=== PATIENT | male | born 1960 | race Caucasian/White ===

== ENCOUNTER 2022-11-19 15:08 | Observation (INO) | payer BC, SELFPAY ==
--- NOTE | ~2022-11-19 | XR_ITS ---
EXAMINATION: XR hand LT min 3V INDICATION: Right hand pain TECHNIQUE: Three views of the right hand are obtained. COMPARISON: None available FINDINGS: There is soft tissue swelling adjacent to the first metacarpal. No fracture is identified. There is no radiopaque foreign body. 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 Mild osteoarthritis is noted in multiple interphalangeal joints. IMPRESSION: 1. Soft tissue swelling without acute osseous abnormality. Reviewed, dictated and finalized at location F.
[2022-11-19 15:12] VITALS: BP 143/81; PULSE 66; RESP 16; TEMP 36.6; O2SAT 99
[2022-11-19 15:40] LABS: Basophils Absolute Auto 0.1 K/mm3 (0.0-0.1); Basophils Percent Auto 0.8 % (0.2-1.2); Eosinophils Absolute Auto 0.2 K/mm3 (0-0.3); Eosinophils Percent Auto 2.2 % (0-4.4); Hematocrit 47.9 % (42.0-52.0); Hemoglobin 15.3 g/dL (14.0-18.0); Immature Granulocyte Absolute 0.08 K/mm3 (0.00-0.031); Immature Granulocyte Percent A 0.9 % (0-0.5); Lymphocytes Absolute Auto 1.66 K/mm3 (0.9-3.2); Lymphocytes Percent Auto 18.7 % (18.3-44.2); Mean Corpuscular HGB Conc 31.9 g/dl (32-36); Mean Corpuscular Hemoglobin 29.8 pg (26-34); Mean Corpuscular Volume 93.4 fl (80-100); Monocytes Absolute Auto 0.8 K/mm3 (0.1-0.6); Monocytes Percent Auto 9.4 % (2.6-8.5); Neutrophils Absolute Auto 6.1 K/mm3 (1.3-6.7); Platelet Count Result 170 k/mm3 (150-375); Red Blood Count 5.13 M/mm3 (4.6-6.20); Red Cell Distribution Width 11.9 % (11.5-14.5); White Blood Count 8.9 K/mm3 (4.5-10.0)
[2022-11-19 15:52] LABS: Alanine Aminotransferase 42 U/L (6-50); Albumin Level 4.5 g/dL (3.5-5.1); Alkaline Phosphatase 59 U/L (38-126); Anion Gap 7 mmol/L (8-16); Aspartate Amino Transferase 33 U/L (17-59); Bilirubin,Total 0.8 mg/dL (0.2-1.3); Blood Urea Nitrogen 19 mg/dL (9-20); Calcium 9.3 mg/dL (8.4-10.2); Carbon Dioxide 30 mmol/L (22-30); Chloride 100 mmol/L (98-107); Estimated CRCL calculation 68 ml/min; Estimated Glomerular Filt Rate 51; Glucose 110 mg/dL (65-110); Potassium 4.7 mmol/L (3.4-5.0); Sodium 137 mmol/L (137-145)
[2022-11-19 15:55] LABS: CRP 3.4 mg/dL (<1.0)
[2022-11-19 16:03] LABS: Erythrocyte Sedimentation Rate 12 mm/hr (0-20)
[2022-11-19] MEDS: LIDO 1%/EPINEPHRINE 1:100,000 10 ML VIAL (16:27)
--- NOTE | 2022-11-19 16:31 | ED.GENADULT ---
HPI - General Adult General Chief complaint: Extremity Injury, Upper Stated complaint: left hand infection Time Seen by Provider: 11/19/22 15:46 Source: RN notes reviewed and other (Received a call prior to patient's arrival from his PCP) History of Present Illness HPI narrative: Patient presents emergency department from PCPs office for cat bite. Patient states he sustained a cat bite by his cat on November 14. States his cat is up-to-date on all of his shots and there was a puncture wound over the aspect of the left hand at the base of the thumb. He states that he got to see Dr. Cummings and was started on Augmentin for which she has been taking for 3 days. States he gone today to follow-up with Dr. Cummings as he is continuing to have redness and swelling and he was directed to come the ER for further evaluation. He denies any pain with movement of his thumb or his wrist he denies any fevers or chills numbness or tingling of the extremities or any other symptoms of concern Related Data Allergies Allergy/AdvReac Type Severity Reaction Status Date / Time No Known Allergies Allergy Verified 11/19/22 15:11 Review of Systems Review of Systems: Gen.: Denies fevers or chills Musculoskeletal: Reports left hand pain Neuro: Denies numbness, tingling, weakness Skin: See HPI Endo: Denies DM PMFSH Past Medical History Medical History (Updated 11/19/22 @ 16:55 by Joe Carr DO) Patient denies significant medical history Social History Social History (Updated 11/19/22 @ 16:33 by Joe Carr DO) Smoking status: Never smoker Exam Narrative: APPEARANCE: No acute distress, nontoxic, resting in bed Eyes: EOMI HEENT: Normocephalic, atraumatic, RESPIRATORY: No respiratory distress MUSCULOSKELETAl: Left posterior hand has a large area of erythema with mild fluctuance at the base of the left thumb between the first IP joint and the wrist full flexion-extension of the first IP and MCP joint without pain full range of motion of all other MCP and IP joints, capillary refill less than 3 seconds neurovascularly intact no tenderness of the wrist with full flexion-extension of the wrist radial pulse 2+ NEURO: Awake and alert. Following commands, speech normal, no focal deficits SKIN:: Warm, dry. Normal Color no rash or lesions Course Course Emergency Course: Called and discussed with Dr. Pagan for hand surgery will come to see the patient in the emergency Dr. Pagan for hand surgery came down to see the patient in the ER and performed I&D. Request patient be started on Unasyn and admitted request that silver nitrate Aquacel be placed on wound Called discussed with LETTY Muniz for Dr Mcadams for hospitalist service agrees with admission Discussed with patient and family results of workup and diagnosis. Discussed need for admission. Patient and family understand and agree to current treatment plan Vital Signs Vital signs: Vital Signs Temperature 97.9 F 11/19/22 15:12 Pulse Rate 66 11/19/22 15:12 Respiratory Rate 16 11/19/22 15:12 Blood Pressure 143/81 H 11/19/22 15:12 Pulse Oximetry 99 11/19/22 15:12 Oxygen Delivery Room Air 11/19/22 15:12 Temperature 97.9 F 11/19/22 15:12 Pulse Rate 66 11/19/22 15:12 Respiratory Rate 16 11/19/22 15:12 Blood Pressure 143/81 H 11/19/22 15:12 Pulse Oximetry 99 11/19/22 15:12 Oxygen Delivery Room Air 11/19/22 15:12 Medical Decision Making MDM Narrative Medical decision making narrative: Patient presents for left hand wound from a cat bite. Has been on Augmentin for 3 days. Patient is noted to have a fluctuant area he has full motion of his left thumb and there appears to be no tendon involvement. At that time lab work was obtained as well as x-ray which showed no retained foreign bodies lab work was within normal limits I called and discussed with hand surgery Dr. Pagan who came to see the patient after he saw the patient he performed an I&D felt the patie
[2022-11-19 16:41] LABS: INR 1.3; Prothrombin Time 15.3 Seconds (11.1-14.7)
[2022-11-19 16:42] LABS: Partial Thromboplastin Time 32.9 SECONDS (22.3-36.8)
--- NOTE | 2022-11-19 16:53 | W.PM.PROC2 ---
Procedure Note - Detailed Date of Procedure 11/19/22 Pre-op Diagnosis left hand infection Post-op Diagnosis Other (Abscess left extensor thumb.) Procedure Performed I&D abscess of left extensor thumb Surgeon Joe Pagan MD Anesthesia Local Indications Cat claw puncture 5 days ago. Became reddened. Was started on Augmentin 3 days ago by PCP. Area has continued to swell and become quite red. There is minimal pain and he has excellent range of motion.. It would appear the has some degree of abscess in the subcutaneous tissue and needs to have this incised for drainage. Also recommending that he be admitted to the hospital for IV antibiotics. 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 The he consented to the I and D over the dorsal thumb under local anesthetic and the emergency room. The dorsal hand and thumb area were prepped draped in usual fashion. This area was infiltrated with 1% lidocaine with epinephrine and adequate anesthesia was obtained. A dorsal midline incision was made approximately 3 cm. A yellow batista phlegmonous tissue was noted around the deep subcutaneous tissue and extensor tendon. There was no annika pus. We did obtain a culture. The site was explored locally noting that most the surrounding area was well perfused and intact. This was irrigated with 150 cc of saline. The silver alginate dressing will be applied to this and he is being admitted to the hospitalist. I will consult . Estimated Blood Loss 10 Tourniquet Time 0 Drains No Packing Yes Pathology Yes Complications No immediate complications Condition Stable Disposition Floor
[2022-11-19] MEDS: AMPICILLIN SULB 3 GM/NS 100 ML 3 GM/100 ML VIAL IVPB (16:56)
[2022-11-19] MEDS: SILVER NITRATE 1 EA BANDAGE (AQUACEL-AG)(*BKC) 1 EACH TOPICAL (17:11)
--- NOTE | 2022-11-19 18:15 | PM.IMHP ---
H&P: HPI History of Present Illness Date/Time: 11/19/22 18:15 Chief Complaint: Left hand infection Narrative: This is a 62-year-old who obtained a CAT scratch on Wednesday from his own pet. The patient stated that on Wednesday his hand became red and swollen and went to see his primary care doctor. The patient was started on Augmentin this past Wednesday. His left hand continued to increase in size and redness. Dr. Pagan was consulted and performed an I&D in the emergency room.The wound was packed and dressed in the emergency room. The patient was started on Unasyn in the emergency room. The patient denies any discomfort at this time. His white count is normal. His creatinine is 1.4 no previous labs for comparison. His C reactive protein is 3.4. Hand x-ray was read as soft tissue swelling without acute osseous abnormality. The patient is being admitted for observation on the date of service of 11/19/2022. Review of Systems Review of Systems: All systems reviewed & are unremarkable except as noted in HPI and below Constitutional: Constitutional: Reports as per HPI and Reports no additional constitutional complaints Eyes: Eyes: Reports as per HPI and Reports no additional eye complaints ENT: Reports system reviewed and no additional complaints, except as documented and Reports Normal hearing present Cardiovascular: Cardiovascular: Reports no additional cardiovascular complaints Respiratory: Respiratory: Reports no additional respiratory complaints and Reports no additional respiratory complaints Gastrointestinal: Gastrointestinal: Reports as per HPI and Reports no additional gastrointestinal complaints Musculoskeletal: Musculoskeletal: Reports no additional musculoskeletal complaints Integumentary/Breasts: Skin/Breast: Reports system reviewed and no additional complaints, except as docu and Reports as per HPI Neurologic: Reports system reviewed and no additional complaints, except as documented, Reports as per HPI and Reports Normal hearing present Psychiatric: Psychiatric: Reports no additional psychiatric complaints and Reports as per HPI Endocrine: Endocrine: Reports no additional endocrine complaints Hematologic/Lymphatic: Hematologic/Lymphatic: Reports no additional hematologic/lymphatic complaints Allergic/Immunologic: Allergic/Immunologic: Reports no additional allergic/immunologic complaints [facility] Past Medical History Medical History (Updated 11/19/22 @ 18:20 by Cristy Saavedra NP) CHF (congestive heart failure), NYHA class I Chronic GERD Flutter-fibrillation Hyperlipidemia Hypertension ALEXANDRA on CPAP Patient denies significant medical history Surgical History Surgical History (Updated 11/19/22 @ 18:19 by Cristy Saavedra NP) H/O cardiac radiofrequency ablation H/O left nephrectomy Family History Family History (Updated 11/19/22 @ 18:19 by Cristy Saavedra NP) Father Hypertension Hyperlipidemia Mother Hypertension Social History Social History (Updated 11/19/22 @ 22:00 by Cristy Saavedra NP) Social History: The patient lives alone. The patient has 2 children. He is . He works from home for [employer]. He does not have a durable power document review attorney for healthcare. Code status full code Smoking status: Never smoker Alcohol intake: current Substance use: never Lack of Transportation: No Lack of Food: Never True Current Housing: I Have Housing Concerned About Future Housing: No Difficulty Paying Gas/Electric Bills: No Difficulty Paying for Meds: No Currently Unemployed: No Education: Associate Degree Difficulty w/ Childcare or Family Care: No Spiritual care concerns: No Meds Home Medications and Allergies Home Medications Medication Instructions Recorded Confirmed Type Pepcid 20 mg PO BID 11/19/22 11/19/22 History apixaban 5 mg tablet (Eliquis) 5 mg PO BID 11/19/22 11/19/22 History furosemide 80 mg tablet 80 mg PO EVE
[2022-11-19 18:30] VITALS: BP 133/81; PULSE 61; RESP 16; O2SAT 100
--- NOTE | 2022-11-19 20:30 | ADMGEN ---
This patient, Bartolo Wheeler, was admitted to 2 Medical Room 242-. Patient/family oriented to hospital policies and general routines including ID bracelet, bed and alarms, visiting hours, pain management, procedures, bathroom and other care routines, personal items, smoking policy, room service/diet, and visiting hours. Information on how to activate the Rapid Response Team has been discussed. Patient/Family are encouraged to report perceived risks to care and to ask questions if they do not understand what they are told or what they should do.
[2022-11-19 22:10] VITALS: BP 140/77; PULSE 68; RESP 18; TEMP 36.8; O2SAT 100
[2022-11-19 22:49] VITALS: PULSE 78
[2022-11-19] MEDS: FAMOTIDINE 20 MG TABLET PO (22:49)
[2022-11-19] MEDS: METOPROLOL SUCCINATE EXT REL 100 MG TABCR PO (22:49)
[2022-11-19] MEDS: LOSARTAN POTASSIUM 100 MG TABLET PO (22:49)
[2022-11-19] MEDS: HYDROcodone/acetaminophen (*CRX) 5-325 MG TABLET 1 TAB PO (22:49)
[2022-11-19] MEDS: ROSUVASTATIN 10 MG TABLET PO (22:49)
[2022-11-19] MEDS: APIXABAN 5 MG TABLET PO (22:49)
[2022-11-20 05:18] VITALS: BP 102/54; PULSE 58; RESP 18; TEMP 36.6; O2SAT 97
[2022-11-20 05:40] LABS: Basophils Absolute Auto 0.1 K/mm3 (0.0-0.1); Basophils Percent Auto 1.2 % (0.2-1.2); Eosinophils Absolute Auto 0.2 K/mm3 (0-0.3); Eosinophils Percent Auto 3.5 % (0-4.4); Hematocrit 44.4 % (42.0-52.0); Hemoglobin 14.4 g/dL (14.0-18.0); Immature Granulocyte Absolute 0.08 K/mm3 (0.00-0.031); Immature Granulocyte Percent A 1.2 % (0-0.5); Lymphocytes Absolute Auto 1.73 K/mm3 (0.9-3.2); Lymphocytes Percent Auto 26.3 % (18.3-44.2); Mean Corpuscular HGB Conc 32.4 g/dl (32-36); Mean Corpuscular Hemoglobin 30.4 pg (26-34); Mean Corpuscular Volume 93.9 fl (80-100); Monocytes Absolute Auto 0.8 K/mm3 (0.1-0.6); Monocytes Percent Auto 12.5 % (2.6-8.5); Neutrophils Absolute Auto 3.6 K/mm3 (1.3-6.7); Neutrophils Percent Auto 55.3 % (45.5-73.1); Platelet Count Result 169 k/mm3 (150-375); Red Blood Count 4.73 M/mm3 (4.6-6.20); Red Cell Distribution Width 11.9 % (11.5-14.5); White Blood Count 6.6 K/mm3 (4.5-10.0)
[2022-11-20 05:49] LABS: Lactic Acid Reflex 0.9 mmol/L (0.7-2.0)
[2022-11-20] MEDS: AMPICILLIN SULB 3 GM/NS 100 ML 3 GM/100 ML VIAL IVPB ×3 (05:54→11:33)
[2022-11-20] MEDS: HYDROcodone/acetaminophen (*CRX) 5-325 MG TABLET 1 TAB PO (05:59)
[2022-11-20 06:04] LABS: Alanine Aminotransferase 40 U/L (6-50); Albumin Level 3.9 g/dL (3.5-5.1); Alkaline Phosphatase 52 U/L (38-126); Anion Gap 6 mmol/L (8-16); Aspartate Amino Transferase 31 U/L (17-59); Bilirubin,Total 0.5 mg/dL (0.2-1.3); Blood Urea Nitrogen 21 mg/dL (9-20); CRP 2.6 mg/dL (<1.0); Calcium 8.9 mg/dL (8.4-10.2); Carbon Dioxide 34 mmol/L (22-30); Chloride 102 mmol/L (98-107); Estimated CRCL calculation 79 ml/min; Estimated Glomerular Filt Rate > 60; Glucose 99 mg/dL (65-110); Magnesium 2.3 mg/dL (1.6-2.3); Potassium 4.1 mmol/L (3.4-5.0); Sodium 142 mmol/L (137-145)
[2022-11-20 08:44] VITALS: PULSE 60
[2022-11-20] MEDS: POTASSIUM CHLORIDE 10 MEQ TABLET.ER PO (08:44)
[2022-11-20] MEDS: METOPROLOL SUCCINATE EXT REL 100 MG TABCR PO (08:44)
[2022-11-20] MEDS: FUROSEMIDE 80 MG TABLET PO (08:44)
[2022-11-20] MEDS: APIXABAN 5 MG TABLET PO (08:45)
[2022-11-20] MEDS: FAMOTIDINE 20 MG TABLET PO (08:45)
--- NOTE | 2022-11-20 11:07 | PC.NURSE ---
On 11/20/22, the student, [Donavan Duvall], provided care and completed [facility] documentation on this patient. I have reviewed the student's documentation and agree with the findings.
--- NOTE | 2022-11-20 11:41 | PM.DS ---
DS: Admitting Diagnosis Discharge Date 11/20/22 Admitting Diagnosis cat bite DS: Discharge Diagnosis Discharge Diagnosis (1) Cat bite: Code(s): W55.01XA - Bitten by cat, initial encounter Status: Acute (2) Cellulitis of hand, left: Code(s): L03.114 - Cellulitis of left upper limb Status: Acute (3) CHF (congestive heart failure), NYHA class I: Code(s): I50.9 - Heart failure, unspecified Status: Acute (4) Chronic GERD: Code(s): K21.9 - Gastro-esophageal reflux disease without esophagitis Status: Acute DS: Summary Hospital Course Hospital Course: This is a 62-year-old who obtained a CAT scratch on Wednesday from his own pet.? The patient stated that on Wednesday his hand became red and swollen and went to see his primary care doctor.? The patient was started on Augmentin this past Wednesday.? His left hand continued to increase in size and redness.? Dr. Pagan was consulted and performed an I&D in the emergency room.The wound was packed and dressed in the emergency room.? The patient was started on Unasyn.? The patient denies any discomfort at this time.? His white count is normal. he is being discharged home with PO augmentin for 7 days Time Spent with Patient Time attestation: Total time spent providing and/or coordinating discharge services: Exam Const: General: cooperative, healthy appearing, comfortable, no acute distress, well developed, awake, Physically active, average body habitus and well nourished Nutritional Appearance: average body habitus and well nourished Orientation/consciousness: oriented to person, oriented to place, oriented to time and patient oriented x3 Limitations: no limitations HENMT: Head: normal to inspection, No palpable skull fracture present, normocephalic, atraumatic and abrasion Ears: hearing grossly normal bilaterally and external ears normal Face/Nose/Sinus: Normal external nose present and Normal nares present Eyes: General: appearance normal, both eyes and all related structures Alignment and Position: alignment normal Periorbital: periorbital findings normal Eyelids: eyelids normal Sclera: sclerae normal Pupils: Equal, round and reactive pupils present EOM: EOMs intact bilaterally Neck: Neck: normal visual inspection, full ROM, no lymphadenopathy, trachea midline and supple Chest: Chest palpation & inspection: normal inspection of the chest Resp: Effort & Inspection: normal respiratory effort Auscultation: clear to auscultation bilaterally Cardio: Palpation: normal PMI Rate: regular rate Rhythm: regular rhythm Heart sounds: S1 normal heart sound present and S2 normal heart sound present Peripheral pulses: Peripheral pulses 2+ throughout GI: Inspection: normal to inspection Auscultation: normal bowel sounds Rectal Exam: deferred Back/Spine/Pelvis: Cervical Spine: cervical ROM normal Skin: General skin exam: normal color Lesions: no lesions Rashes: no rashes Trauma: no lacerations or abrasions Hair: general thinning Nails: normal Neuro: General: oriented to person, oriented to place, oriented to time and patient oriented x3 Cranial nerves: Yes Equal, round and reactive pupils present and Yes Normal hearing present Cognition (Neuro): normal cognition Speech: normal speech Gait exam (Neuro): Normal gait present Motor exam (neuro): 5/5 motor strength present throughout Sensory Exam: normal sensation Extrem: General: normal to inspection Right upper extremity: normal to inspection and shoulder/upper arm Left upper extremity: normal to inspection and shoulder/upper arm Right lower extremity: normal to inspection Left lower extremity: normal to inspection Psych: Appearance: grossly normal Mental Status: mental status grossly normal Speech and movement: Normal speech and movement present Affect: normal affect Attitude: cooperative Thought process: Normal thought process present Thought content: Yes Normal thought content present
--- NOTE | 2022-11-20 12:34 | WPDPN ---
Progress Note: A&P Assessment and Plan (1) Abscess of hand, left: Code(s): L02.512 - Cutaneous abscess of left hand Status: Acute Assessment and Plan: Discharge to home. Warm water soaks 20 min bid. Redress with Aquacel AG or calcium alginate AG bid. Light gauze dressing. Use hand as tolerated. F/U with Dr Pagan on Wednesday. Continue Augmentin 875 bid for ten days. Subjective Date/time seen: 11/20/22 12:34 Interval history: Hand feels about the same. Exam Narrative: Wound redressed. Erythema is marked and the same. Able to express some rivers pus from one edge of the wound. Pt says it does not hurt. No worsening of the area. Wound culture pending. Objective Data Vital Signs Vital Signs: Vital Signs - 24 hr 11/19/22 15:12 11/19/22 18:30 11/19/22 22:10 Temperature 97.9 F 98.3 F Pulse Rate 66 61 68 Respiratory Rate 16 16 18 Blood Pressure 143/81 H 133/81 140/77 Pulse Oximetry 99 100 100 Oxygen Delivery Room Air 11/19/22 22:49 11/20/22 05:18 11/20/22 08:44 Temperature 97.8 F Pulse Rate 78 58 L 60 Respiratory Rate 18 Blood Pressure 102/54 L Pulse Oximetry 97 Oxygen Delivery 11/20/22 09:30 11/20/22 08:00 Temperature Pulse Rate Respiratory Rate Blood Pressure Pulse Oximetry Oxygen Delivery Room Air Room Air Intake/Output Intake/Output: Intake & Output 11/17/22 11/18/22 11/19/22 11/20/22 23:59 23:59 23:59 23:59 Intake Total 100 750 Balance 100 750 Meds/Results Medications: Active Medications Generic Name Dose Route Start Last Admin Trade Name Freq PRN Reason Stop Dose Admin Hydrocodone Bitart/Acetaminophen 1 tab 11/19/22 22:08 11/20/22 05:59 Hydrocodone/Acetaminophen (*Crx) 5-325 Mg Tablet PO 1 tab Q4H PRN Administration Pain Rated 4-6 Apixaban 5 mg 11/19/22 22:10 11/20/22 08:45 Apixaban 5 Mg Tablet PO 5 mg BID ROBLES Administration Famotidine 20 mg 11/19/22 22:10 11/20/22 08:45 Famotidine 20 Mg Tablet PO 12/19/22 22:09 20 mg BID ROBLES Administration Fentanyl Citrate 25 mcg 11/19/22 22:08 Fentanyl Citrate Inj (*Crx) 100 Mcg/2 Ml Vial IV PUSH Q4H PRN Pain Rated 7-10 Furosemide 80 mg 11/20/22 09:00 11/20/22 08:44 Furosemide 80 Mg Tablet PO 80 mg DAILY ROBLES Administration Ampicillin Sodium/Sulbactam Sodium 3 gm in 100 mls @ 200 mls/hr 11/20/22 00:00 11/20/22 11:33 Unasyn 3 Gm/Ns 100 Ml IVPB 200 mls/hr Q6H ROBLES Administration Losartan Potassium 100 mg 11/19/22 22:10 11/19/22 22:49 Losartan Potassium 100 Mg Tablet PO 100 mg QPM ROBLES Administration Metoprolol Succinate 100 mg 11/19/22 22:10 11/20/22 08:44 Metoprolol Succinate Ext Rel 100 Mg Tabcr PO 100 mg BID ROBLES Administration Potassium Chloride 10 meq 11/20/22 09:00 11/20/22 08:44 Potassium Chloride 10 Meq Tablet.Er PO 10 meq DAILY ROBLES Administration Rosuvastatin Calcium 10 mg 11/19/22 22:10 11/19/22 22:49 Rosuvastatin 10 Mg Tablet PO 10 mg HS ROBLES Administration Radiology Results: ITS Impressions Hand X-Ray 11/19/22 16:06 IMPRESSION: 1. Soft tissue swelling without acute osseous abnormality. Labs Labs: Laboratory Results - last 24 hr 11/19/22 11/19/22 11/19/22 15:32 15:32 15:32 WBC 8.9 RBC 5.13 Hgb 15.3 Hct 47.9 MCV 93.4 MCH 29.8 MCHC 31.9 L RDW 11.9 Plt Count 170 MPV 10.0 Immature Gran % (Auto) 0.9 H Neut % (Auto) 68.0 Lymph % (Auto) 18.7 Cooper % (Auto) 9.4 H Eos % (Auto) 2.2 Baso % (Auto) 0.8 Lymph # (Auto) 1.66 Cooper # (Auto) 0.8 H Eos # (Auto) 0.2 Baso # (Auto) 0.1 Abs Immat Gran (auto) 0.08 H Absolute Neuts (auto) 6.1 Absolute Nucleated RBC 0.0 Nucleated RBC % 0.0 ESR 12 PT INR APTT Sodium 137 Potassium 4.7 Chloride 100 Carbon Dioxide 30 Anion Gap 7 L BUN 19 Creatinine 1.40 H Estim Creat Clear Calc 68
== END 2022-11-20 13:23 | disposition home or self-care (01) ==
LOC: ANHED 16:55 → ANH2MED 19:50
PROVIDERS: Emergency Medicine; Nurse Practitioner; Admitting Provider Internal Medicine; Emergency Provider Emergency Medicine; PCP Internal Medicine; Visit Provider Hospitalist
DX: L03.114 Cellulitis of left upper limb (principal); L02.512 Cutaneous abscess of left hand; W55.01XA Bitten by cat, initial encounter; A49.02 Methicillin resistant Staphylococcus aureus infection, unspecified site; I50.9 Heart failure, unspecified; K21.9 Gastro-esophageal reflux disease without esophagitis; I48.92 Unspecified atrial flutter; E78.5 Hyperlipidemia, unspecified; I10 Essential (primary) hypertension; G47.33 Obstructive sleep apnea (adult) (pediatric); F10.90 Alcohol use, unspecified, uncomplicated; Z82.49 Family history of ischemic heart disease and other diseases of the circulatory system; Z83.438 Family history of other disorder of lipoprotein metabolism and other lipidemia
CPT/HCPCS: 36415; 73130; 80053; 83605; 83735; 85025; 85610; 85652; 85730; 86140; 87040; 87070; 87075; 87147; 87181; 87186; 87205; 96365; 96366; 96376; 99285; A9270; G0378; J0295